=== PATIENT | female | born 1940 | race Caucasian/White ===

== ENCOUNTER 2018-03-22 13:15 | Outpatient (CLI) | payer OTHER ==
[~2018-03-22 13:15] MED LIST: ACCUPRIL40 MG; ALBUTEROL; CIPRO500 MG PO; FLAGYL500MG PO; INTESTINEX1 CA1 PO; LOZOL2.5 MG; NIFEDIAC CC30 MG; VYTORIN 10-40 M1 TAB
== END 2018-03-23 09:16 | disposition home or self-care (01) ==
LOC: RAD 13:15
DX: R07.89 Other chest pain (principal)

== ENCOUNTER 2024-07-26 12:21 | Outpatient (CLI) | payer OTHER | END 2024-07-26 12:31 | disposition home or self-care (01) | LOC: TOM 12:21 | PROVIDERS: ATTEND Internal Medicine Gastroenterology | DX: R10.9 Unspecified abdominal pain (principal); E03.9 Hypothyroidism, unspecified ==